=== PATIENT | female | born 1970 | race Caucasian/White ===

== ENCOUNTER 2018-06-11 15:26 | Emergency (ER) | payer MEDICAID ==
[2018-06-11 15:51] VITALS: BP 125/86
--- NOTE | 2018-06-11 16:02 | UC ---
Respiratory Complaint HPI - HPI Summary HPI Summary: This pt is a 47 y/o female, with hx of asthma, presenting to [facility] c/o coughing, asthma, and allergies. She states that when she has allergies her asthma is aggravated. She states she has difficulty breathing and has a nonproductive cough. Pt notes that when she coughs a lot she has upper back pain and lightheadedness. Denies chest pain, fever, chills. She has been taking antihistamines for her allergies. She has also been using her nebulizer and albuterol at home for asthma. She states that she has had this episode in the past a few times and her PCP usually administers a shot to open up her lungs. PMHx herniated disk lower back, bulging disk in neck. Pt usually takes Naproxen for her back pain but stopped taking it 2 days ago. Today she also c/o back pain radiating to her legs. - History of Current Complaint Chief Complaint: UCRespiratory Stated Complaint: ASTHMA Time Seen by Provider: 06/11/18 15:55 Hx Obtained From: Patient Hx Last Menstrual Period: 06/01/18 Onset/Duration: Lasting Hours, Still Present Severity Currently: Moderate Pain Intensity: 8 Pain Scale Used: 0-10 Numeric Character: Cough: Nonproductive Aggravating Factors: Nothing Alleviating Factors: Nothing Associated Signs And Symptoms: Negative: Fever, Chills, Pleuritic Chest Pain, Hemoptysis, Calf Pain, Calf Swelling, Edema - Allergies/Home Medications Allergies/Adverse Reactions: Allergies Allergy/AdvReac Type Severity Reaction Status Date / Time No Known Allergies Allergy Verified 06/11/18 15:51 Home Medications: Home Medications Loratadine/Pseudoephedrine [Loratadine-D 12Hr] 1 tab PO DAILY WITH MEAL [History Confirmed 06/11/18] Naproxen [Naproxen 500 mg tab] 500 mg PO DAILY WITH MEAL 06/11/18 [History Confirmed 06/11/18] PMH/Surg Hx/FS Hx/Imm Hx - Additional Past Medical History Additional PMH: PMHx: herniated disk lower back , bulging disk in neck Other Endocrine History: DENIES: diabetes Other Cardiovascular History: DENIES: HTN Respiratory History: Asthma - Surgical History Surgical History: None Surgery Procedure, Year, and Place: c section x 3 - Family History Known Family History: Positive: Respiratory Disease - asthma - Social History Alcohol Use: None Substance Use Type: None Smoking Status (MU): Light Every Day Tobacco Smoker Type: Cigarettes Length of Time of Smoking/Using Tobacco: 18 Have You Smoked in the Last Year: Yes Household Exposure Type: Cigarettes Review of Systems Constitutional: Negative Skin: Negative Eyes: Negative ENT: Negative Respiratory: Shortness Of Breath, Cough Cardiovascular: Negative Gastrointestinal: Negative Genitourinary: Negative Motor: Negative Neurovascular: Negative Musculoskeletal: Other: - POS: back pain Neurological: Other - POS: lightheadedness Psychological: Negative All Other Systems Reviewed And Are Negative: Yes Physical Exam - Summary Physical Exam Summary: General: well-appearing, no pain distress Skin: warm, color reflects adequate perfusion, dry Head: normal Eyes: EOMI, JUAN DANIEL ENT: normal Neck: supple, nontender Respiratory: CTA, breath sounds present Cardiovascular: RRR Abdomen: soft, nontender Bowel: present Musculoskeletal: normal, strength/ROM intact Neurological: normal, sensory/motor intact, A&O x3 Psychological: affect/mood appropriate Triage Information Reviewed: Yes Vital Signs: Initial Vital Signs Temp 98.7 F 06/11/18 15:45 Pulse 98 06/11/18 15:45 Resp 20 06/11/18 15:45 BP 125/86 06/11/18 15:45 Pulse Ox 100 06/11/18 15:45 Vital Signs Reviewed: Yes Diagnostic Evaluation - Laboratory O2 Sat by Pulse Oximetry: 100 Respiratory Course/Dx - Course Course Of Treatment: Medications reviewed. - Differential Dx/Diagnosis Provider Diagnoses: ASTHMA Discharge - Sign-Out/Discharge Documenting (check all that apply): Patient Departure - Discharge All imaging exams completed and their final reports reviewed: No Studies - Discharge Plan Condition: Stable Disposition: HOME Prescriptions: predniSONE TAB* [Deltasone 20 MG TAB*] 40 mg PO DAILY #8 tab Patient Education Materials: Asthma (ED) Referrals: [facility]IAN REFERRAL [Outside] Additional Instructions: FOLLOW UP WITH YOUR PRIMARY CARE DOCTOR. FOLLOW UP WITH NEUROSURGERY, DR DEJESUS, , FOR YOUR BACK PAIN. GET RECHECKED FOR ANY WORSENING OF YOUR CONDITION OR QUESTIONS OR CONCERNS. - Billing Disposition and Condition Condition: STABLE Disposition: Home - Attestation Statements Document Initiated by Scribe: Yes Documenting Scribe: Arianna Castellano Provider For Whom Scribe is Documenting (Include Credential): Vikas Cade MD Scribe Attestation: I, Arianna Castellano, scribed for Vikas Cade MD on 06/11/18 at 1752. Scribe Documentation Reviewed: Yes Provider Attestation: The documentation as recorded by the scribe, Arianna Castellano accurately reflects the service I personally performed and the decisions made by me, Vikas Cade MD
[2018-06-11] MEDS ORDERED: methylPREDNISolone 125 MG* 2 ML VIAL IM ONE (16:07)
== END 2018-06-11 16:31 | disposition home or self-care (01) ==
LOC: UCEAST 15:26
DX: J45.909 Unspecified asthma, uncomplicated (principal); M54.9 Dorsalgia, unspecified; F17.210 Nicotine dependence, cigarettes, uncomplicated
CPT/HCPCS: 96372; 99202; G0463; J2930

== ENCOUNTER 2018-07-02 08:29 | Emergency (ER) | payer OTHER ==
[2018-07-02 09:04] VITALS: BP 136/94
--- NOTE | 2018-07-02 09:25 | UC ---
Shortness of Breath HPI - HPI Summary HPI Summary: 48-year-old woman comes in with a chief complaint of dry cough and shortness of breath. This been going on for several weeks. It started when she moved in with her sister and is a dog in the house. She's had prior allergens to animals. She does have asthma and she is a smoker. She gets some intermittent splinting chest pain with the coughing. She has no chest pain now. She's not nauseous or sweaty. She does have some sputum production. She's been using her DuoNeb with minimal improvement. She was on steroids 2 weeks ago and that did help. At this time she is planning on getting a new apartment which is scheduled for July 16, 2018. The no apartment will not have an animal. No calf pain or swelling in the calves. She has chronic neck and low back pain and sciatica. This is worse with cough. She has been on naproxen the past she does not feel that helped. She had an MRI recently with her primary care doctor who is in [facility] and the patient starts PT tomorrow for the chronic back and neck pain and sciatica. There is no weakness numbness or difficulty controlling urine or bowel. - History of Current Complaint Chief Complaint: UCAsthma Stated Complaint: CONGESTED Time Seen by Provider: 07/02/18 09:07 Hx Last Menstrual Period: 06/23/18 - Allergy/Home Medications Allergies/Adverse Reactions: Allergies Allergy/AdvReac Type Severity Reaction Status Date / Time No Known Allergies Allergy Verified 06/11/18 15:51 Home Medications: Home Medications Albuterol HFA INHALER* [Ventolin HFA Inhaler*] 1 puff INH Q4H PRN 07/02/18 [ History Confirmed 07/02/18] Albuterol/Ipratropium NEB.PARTH* [Duoneb (Albuterol 2.5 MG/Ipratropium 0.5 MG)] 1 neb INH Q4H PRN 07/02/18 [History Confirmed 07/02/18] PMH/Surg Hx/FS Hx/Imm Hx - Additional Past Medical History Additional PMH: Chronic neck and back pain and chronic right sciatica Respiratory History: Asthma - Surgical History Surgical History: Yes Surgery Procedure, Year, and Place: c section x 3 - Family History Known Family History: Positive: Respiratory Disease - asthma - Social History Alcohol Use: None Substance Use Type: None Smoking Status (MU): Light Every Day Tobacco Smoker Type: Cigarettes Amount Used/How Often: 1 cig/ day Length of Time of Smoking/Using Tobacco: 18 Have You Smoked in the Last Year: Yes Household Exposure Type: Cigarettes Review of Systems Constitutional: Negative Skin: Negative Eyes: Negative ENT: Negative Respiratory: Shortness Of Breath, Cough Cardiovascular: Chest Pain - See history present illness Gastrointestinal: Negative Genitourinary: Negative Motor: Negative Neurovascular: Negative Musculoskeletal: Other: - Chronic neck and back pain and right sciatica Neurological: Negative Psychological: Negative Is Patient Immunocompromised?: No All Other Systems Reviewed And Are Negative: Yes Physical Exam Triage Information Reviewed: Yes Appearance: Well-Appearing, No Pain Distress, Well-Nourished, Other: - Dry cough Vital Signs: Initial Vital Signs Temp 98 F 07/02/18 08:57 Pulse 103 07/02/18 08:57 Resp 20 07/02/18 08:57 BP 136/94 07/02/18 08:57 Pulse Ox 99 07/02/18 08:57 Vital Signs Reviewed: Yes Eye Exam: Normal Eyes: Positive: Conjunctiva Clear ENT Exam: Normal ENT: Positive: Normal ENT inspection, Pharynx normal, Pharyngeal erythema. Negative: Hoarse voice Neck exam: Normal Neck: Positive: Supple, Nontender Respiratory: Positive: Chest non-tender, Normal breath sounds, No respiratory distress, No accessory muscle use Cardiovascular: Positive: RRR Musculoskeletal Exam: Normal Musculoskeletal: Positive: Strength Intact, ROM Intact, No Edema, Other: - Calves nontender to palpation. Patient is tender in the right sciatic distribution. Neurological Exam: Normal Neurological: Positive: Alert Psychological Exam: Normal Psychological: Positive: Normal Response To Family Skin Exam: Normal Shortness of Breath Dx - Course Course Of Treatment: Order Information: CHEST PA LAT 2 VWS. Accession Number: [id number]. CPT: 18915. INDICATION: Cough splinting chest pain. COMPARISON: There are no relevant prior studies available for comparison. TECHNIQUE: Dual- energy PA and lateral views of the chest were obtained. FINDINGS: The heart is within normal limits in size. Mediastinal contours appear normal. The left hilum appears prominent. The lungs are clear. No pleural effusion is present. IMPRESSION: PROMINENCE OF THE LEFT HILUM POSSIBLY REPRESENTING HILAR ADENOPATHY. RECOMMEND A FOLLOW-UP CT OF THE CHEST WITH CONTRAST FOR FURTHER EVALUATION. . < Electronically signed by Gordy Mejia MD in OV> 07/02/18 1779. Chest x-ray results discussed with the patient and family. The plan is for the patient to get a primary care doctor and then get the CT chest with IV contrast performed. Today we will treat with azithromycin and prednisone. The naproxen is for the sciatica. The patient noted if she did not improve or if she got worse she should go to the emergency department and show them the report of the recommendation for this chest CT with IV contrast. - Differential Dx/Diagnosis Provider Diagnoses: BRONCHITIS. ASTHMA. LEFT HILAR MASS Discharge - Sign-Out/Discharge Documenting (check all that apply): Patient Departure All imaging exams completed and their final reports reviewed: Yes - Discharge Plan Condition: Stable Disposition: HOME Prescriptions: Azithromyxin JUDITH (NF) [Z-Judith (Zithromax) 250 mg tabs #6] 2 tab PO .TODAY, THEN 1 DAILY #6 tab Naproxen [Naproxen 500 mg tab] 500 mg PO BID #30 tablet. predniSONE TAB* [Deltasone 20 MG TAB*] 40 mg PO DAILY #10 tab Patient Education Materials: Asthma (ED), Sciatica (ED), Acute Bronchitis (ED) Referrals: [facility] REFERR[facility] [Outside] Additional Instructions: FOLLOW UP WITH YOUR DOCTOR. YOUR CHEST X-RAY SHOWED SOME LEFT UPPER CHEST ABNORMALITY AND A CT CHEST WITH IV CONTRAST IS RECOMMENDED. GET THIS DONE WITH YOUR PRIMARY CARE DOCTOR. GO TO THE EMERGENCY DEPARTMENT FOR ANY WORSENING OF YOUR CONDITION OR QUESTIONS OR CONCERNS. - Billing Disposition and Condition Condition: STABLE Disposition: Home
--- NOTE | 2018-07-02 09:49 | RAD ---
INDICATION: Cough splinting chest pain. COMPARISON: There are no relevant prior studies available for comparison. TECHNIQUE: Dual-energy PA and lateral views of the chest were obtained. FINDINGS: The heart is within normal limits in size. Mediastinal contours appear normal. The left hilum appears prominent. The lungs are clear. No pleural effusion is present. IMPRESSION: PROMINENCE OF THE LEFT HILUM POSSIBLY REPRESENTING HILAR ADENOPATHY. RECOMMEND A FOLLOW-UP CT OF THE CHEST WITH CONTRAST FOR FURTHER EVALUATION.
== END 2018-07-02 10:20 | disposition home or self-care (01) ==
LOC: UCEAST 08:29
DX: J45.909 Unspecified asthma, uncomplicated (principal); R91.8 Other nonspecific abnormal finding of lung field; F17.210 Nicotine dependence, cigarettes, uncomplicated
CPT/HCPCS: 71046; 99212; G0463

== ENCOUNTER 2018-10-16 14:15 | Emergency (ER) | payer OTHER ==
[2018-10-16 14:28] VITALS: BP 142/94
--- OUTSIDE RECORDS SUMMARY | 2018-10-16 14:36 | XMS REPORT | Continuity of Care Document ---
:1970 External Reference #:[id number] Author Name Ronal Resendiz MD Address [address] [place] [address] Care Team Providers Name Role Phone Anjum Teague, Care Team Information Rehab Therapist Unavailable Anjum Teague, Primary Care Physician Unavailable Payers Type Date Identification Numbers Payment Provider Subscriber Policy Number: [id number] [facility] Ilda Lorenz PayID: [id number] [address] [place] [address] Advance Directives Description No Information Available Problems Date Description Provider Status Onset: 10/03/2018 Uncomplicated severe persistent Ronla Resendiz MD Active asthma Onset: 10/03/2018 Allergic rhinitis Ronal Resendiz MD Active Onset: 10/03/2018 Allergic rhinitis due to pollen Ronal Resendiz MD Active Family History Date Family Member(s) Problem(s) Comments General Asthma Social History Type Date Description Comments Sex Unknown Tobacco Use Start: Unknown Home is not smoke-free Pets None Tobacco Use Start: Unknown Light tobacco smoker (10 or fewer cigarettes/day) Tobacco Use Start: Unknown Second Hand Smoke Exposure In The Home Smoking Status Reviewed: 10/10/18 Second Hand Smoke Exposure In The Home Allergies, Adverse Reactions, Alerts Description No Known Drug Allergies Medications Medication Date Status Form Strength Qnty SIG Indications Ordering Provider Breo Ellipta 10/03 Active Aerosol 200-25mcg 3unit inhale J30.1 Christopher /2019 /Inh s one puff Shamar Resendiz MD once a day Proair HFA 10/03 Active Aerosol 108(90Bas 25.5g 2 puffs J30.1 e) m every 4 Shamar Resendiz MD mcg/Act as needed Flonase Allergy 10/03 Active Suspension 50mcg/Act 9.900 2 puffs J30.1 ml each Shamar Resendiz MD nostril every day Zyrtec Allergy 10/03 Active Tablets 10mg 30tab one J30.1 Dispers s tablet Shamar Resendiz MD by mouth every day as needed Gabapentin Active Capsules 300mg Zahida, Anjum /0000 Fermín, Cyclobenzaprine Active Tablets 10mg Zahida, Anjum HCL /0000 Fermín, Naproxen DR Active Tablets DR 500mg Unknown /0000 Albuterol Active Nebulizer (2.5mg/3M Unknown Sulfate /0000 L) 0.083% Ipratropium Active Solution 0.5-2.5(3 Unknown [place]/Albutero /0000 )mg/3ML l Sulfate Ventolin HFA Hx Aerosol 108(90Bas Zahida, Anjum /0000 e) Fermín, - mcg/Act 10/03 Advair Diskus Hx Aerosol 100-50mcg Crepet, /0000 /Dose MD Bailey - 10/03 Immunizations Description No Information Available Vital Signs Date Vital Result Comment 10/10/2018 2:40pm BP Systolic 120 mmHg BP Diastolic 78 mmHg Height 63 inches 5'3" Weight 213.00 lb BMI (Body Mass Index) 37.7 kg/m2 Heart Rate 93 /min Respiratory Rate 18 /min O2 % BldC Oximetry 98 % 10/03/2018 10:58am BP Systolic 130 mmHg BP Diastolic 94 mmHg Height 63 inches 5'3" Weight 200.00 lb BMI (Body Mass Index) 35.4 kg/m2 Heart Rate 95 /min Respiratory Rate 20 /min O2 % BldC Oximetry 99 % Results Description No Information Available Procedures Date Code Description Status 10/10/2018 63795 Nitric Oxide Gas Determination Completed 10/03/2018 46618 Nitric Oxide Gas Determination Completed 10/03/2018 13942 Allergy Tests Percutaneous W/ Allergenic Extracts Completed 10/03/2018 94702 Demonstration/Eval,Of Patient Utilization Of Completed Aerosol,Nebulizer 10/03/2018 11132 Bronchodilation Responsiveness Spirometry Pre/Post Completed Bronchodil Adm Encounters Type Date Location Provider Dx Diagnosis Office Visit 10/10/2018 2:30p [place] [facility] Tucker J30.1 Allergic rhinitis due to pollen J30.89 Other allergic rhinitis J45.50 Severe persistent asthma, uncomplicated Office Visit 10/03/2018 11:00a [place] Ronal Resendiz J30.1 Allergic rhinitis MD due to pollen J30.89 Other allergic rhinitis J45.50 Severe persistent asthma, uncomplicated Plan of Treatment Future Appointment(s):10/22/2018 8:30 am - TE Serrano at [id number]/10/2018 - [facility] TuckerJ30.1 Allergic rhinitis due to awrxpbL22.89 Other allergic wspamzavR32.50 Severe persistent asthma, uncomplicatedComments: Patient's exhaled nitric oxide has decreased from 55 to 37 ppb over the past week. Patient to continue Breo for prophylaxis of her lungs and Proair for breakthrough chest symptoms. Patient to continueFlonase for prophylaxis of her nose and Zyrtec for breakthrough nasal symptoms. Patient to use nebulizer every 4 hours as needed. Patient to discontinue oral antihistamines for 48 hours prior to skin testing for food allergies.Greater than 50% of the 25- minute visit was spent in discussion of the testing results and treatment options.Follow up:6 months, PFT and NIOX prior
--- OUTSIDE RECORDS SUMMARY | 2018-10-16 14:37 | XMS REPORT | Continuity of Care Document ---
:1970 External Reference #:[id number] Author Name Danielle Cardona Care Team Providers Name Role Phone Anjum Teague, Care Team Information Supervisor Winter Unavailable Ajnum Teague, Primary Care Physician Unavailable Payers Type Date Identification Numbers Payment Provider Subscriber Policy Number: [id number] [facility] Ilda Lorenz PayID: [id number] [address] [place] [address] Advance Directives Description No Information Available Problems Date Description Provider Status Onset: 10/03/2018 Uncomplicated severe persistent Ronal Resendiz MD Active asthma Onset: 10/03/2018 Allergic [...] Exposure In The Home Smoking Status Reviewed: 10/03/18 Second Hand Smoke Exposure In The Home Allergies, Adverse Reactions, Alerts Description No Known Drug Allergies Medications Medication Date Status Form Strength Qnty SIG Indications Ordering Provider Breo Ellipta 10/03 Active Aerosol 200-25mcg 3unit inhale J30.1 /Inh s one puff Shamar Resendiz MD once a day Proair HFA 10/03 Active Aerosol 108(90Bas 25.5g 2 puffs J30.1 e) m every 4 Shamar Resendiz MD mcg/Act as needed Flonase Allergy 10/03 Active Suspension 50mcg/Act 9.900 2 puffs J30.1 ml each Sahmar Resendiz MD nostril every day Zyrtec Allergy [...] L) 0.083% Ipratropium Active Solution 0.5-2.5(3 Unknown [place]/Albutero /0000 )mg/3ML l Sulfate Ventolin HFA Hx [...] Information Available Procedures Date Code Description Status 10/03/2018 67178 Nitric Oxide Gas Determination Completed 10/03/2018 76205 Allergy Tests Percutaneous W/ Allergenic Extracts Completed 10/03/2018 48713 Demonstration/Eval,Of Patient Utilization Of Completed Aerosol,Nebulizer 10/03/2018 32895 Bronchodilation Responsiveness Spirometry Pre/Post Completed Bronchodil Adm Encounters Type Date Location Provider Dx Diagnosis Office Visit 10/03/2018 Oleg[facility] Ibanez Resendiz, J30.1 Allergic rhinitis 11:00a MD due to pollen J30.89 Other allergic rhinitis J45.50 Severe persistent asthma, uncomplicated Plan of Treatment 10/03/2018 - Ronal Resendiz MDJ30.1 Allergic rhinitis due to pollenNew Medication:Breo Ellipta 200-25 mcg/Inh - inhale one puff once a dayProair HFA 108(90 Base) mcg/Act - 2 puffs every 4 as neededFlonase Allergy Relief 50 mcg/ Act - 2 puffs each nostril every dayZyrtec Allergy 10 mg - one tablet by mouth every day as gbsjxwT05.89 Other allergic jozhznmiD86.50 Severe persistent asthma , uncomplicated
--- OUTSIDE RECORDS SUMMARY | 2018-10-16 14:37 | XMS REPORT | Continuity of Care Document ---
:1970 External Reference #:[id number] Author Name Nicole Fernandez Care Team Providers Name Role Phone Carmen Fuchs MD Primary Care Physician Unavailable Payers Type Date Identification Numbers Payment Provider Subscriber Policy Number: [id number] Gurjit Lorenz PayID: [id number] [address] [place] [address] Advance Directives Description No Information Available Problems Date Description Provider Status Onset: 08/19/2018 Mild intermittent asthma Anjum Teague NP Active Onset: 08/19/2018 Chronic back pain Anjum Teague NP Active Onset: 08/19/2018 Chronic neck pain Anjum Teague NP Active Family History Date Family Member(s) Problem(s) Comments General Lung Cancer Father No Current Problems Mother due to Lung Cancer () Siblings 1 Social History Type Date Description Comments Sex Unknown Marital Status Single Lives With Children Occupation Disabled Back Tobacco Use Start: Unknown Light tobacco smoker (10 or fewer cigarettes/day) Tobacco Use Start: Unknown Light tobacco smoker (10 or fewer cigarettes/day) Smoking Status Reviewed: 10/10/18 Light tobacco smoker (10 or fewer cigarettes/day) ETOH Use Denies alcohol use Recreational Drug Use Denies Drug Use Tobacco Use Start: Unknown Light tobacco smoker (10 or fewer cigarettes/day) Exercise Type/Frequency Exercises rarely Allergies, Adverse Reactions, Alerts Date Description Reaction Status Severity Comments 07/03/2018 Shellfish-derived Products Active Medications Medication Date Status Form Strength Qnty SIG Indications Ordering Provider Bupropion HCL ER 10/08/ Active Tablets ER 150mg 30tab 1 by mouth F32.89 Anjum (XL) 2019 24HR s every day YOLANDA Teague Back Support/Dual 10/08/ Active Misc 1unit Wear M51.16 Anjum Adjustment/Large- 2019 s during the YOLANDA Teague Extra Large day Ventolin HFA 09/21/ Active Aerosol 108(90Bas 8gm 2 puffs by Anjum 2017 e) mouth four YOLANDA Teague mcg/Act times a day as needed Gabapentin 08/13/ Active Capsules 300mg 60cap take 1 M51.16 Anjum 2018 s capsule by YOLANDA Teague mouth qhs. If tolerated can increase to one cap twice daily after three days. Cyclobenzaprine 08/13/ Active Tablets 10mg 60tab 1/2-1 M51.16 Anjum HCL 2018 s tablet by YOLANDA Teague mouth three times a day as needed spasm Albuterol Sulfate 07/03/ Active Nebulizer (5mg/ML) 30uni 1 inahled J45.41 Irma 2018 0.5% ts three Senner, times a DO day Naproxen 00/ Active Tablets 500mg 1 by mouth Unknown 0000 twice a day as needed pain Albuterol Sulfate / Active Nebulizer (2.5mg/3M 1 vial via Unknown 0000 L) 0.083% nebulizer 4 times daily as needed Advair Diskus 00/ Active Aerosol 100-50mcg Crepet, 0000 /Dose MD Bailey Clotrimazole 08/19/ Hx Gaurav 10mg 70uni dissolve Anjum 2018 - ts into mouth YOLANDA Teague 08/31/ slowly 5 2018 times a day x 2 weeks Lidocaine 08/16/ Hx Cream 4% 15gm apply to B02.9 Anjum 2018 - affected YOLANDA Teague 10/10/ areas 3 or 2018 4 times daily Baclofen 11// Hx Tablets 10mg 30tab take 1/2 M50.10 Anjum 2018 - s tab every YOLANDA Teague 08/13/ 8 hours as 2018 needed for muscle spasm Valacyclovir HCL 08/13/ Hx Tablets 1gm 21tab 1 tablet B02.9 Anjum 2018 - s three YOLANDA Teague 08/20/ times 2018 daily for 7 days Lidocaine Viscous // Hx Solution 2% 100ml gargle J02.9 Anjum 2018 - 15ml every YOLANDA Teague 08/20/ 3-4 hours 2018 as needed Lidocaine 11// Hx Ointment 5% 50uni apply to B02.9 Anjum 2018 - ts painful Zahida, PROJECT LEAD 2017 three times a day as needed Nicotine 07/03/ Hx Patches 7mg/24HR 14uni 1 patch Z72.0 Irma Transdermal 2017 - 24HR ts topical Senner, System Step 3 10/10/ every day DO 2018 Ipratropium 07/03/ Hx Solution 0.5-2.5(3 90ml 1 cap J45.41 Irma [place]/Albuterol 2018 - )mg/3ML inhaled Senner, Sulfate 10/10/ three DO 2019 times a day Azithromycin / Hx Tablets 250mg 2 tabs by Unknown 0000 - mouth on 1; 1 2017 tab by mouth every day on days 2-5 Prednisone / Hx TBPK 10mg (21) 40 mg Unknown 0000 - daily for 2017 Arnuity Ellipta / Hx Aerosol 100mcg/Ac Unknown 0000 - t 2018 Immunizations Description No Information Available Vital Signs Date Vital Result Comment 10/08/2018 11:39am Height 62 inches 5'2" Weight 215.00 lb with shoes Heart Rate 108 /min BP Systolic 122 mmHg BP Diastolic 84 mmHg O2 % BldC Oximetry 96 % BMI (Body Mass Index) 39.3 kg/m2 09/03/2018 11:05am Height 62 inches 5'2" Weight 209.00 lb BP Systolic Sitting 120 mmHg BP Diastolic Sitting 80 mmHg Pain Level 8 BMI (Body Mass Index) 38.2 kg/m2 08/13/2018 9:30am Height 62 inches 5'2" Weight 209.00 lb with shoes Heart Rate 100 /min BP Systolic 118 mmHg BP Diastolic 72 mmHg Body Temperature 98.9 F O2 % BldC Oximetry 98 % BMI (Body Mass Index) 38.2 kg/m2 07/03/2018 2:27pm Height 62 inches 5'2" Weight 203.00 lb Heart Rate 72 /min BP Systolic 132 mmHg BP Diastolic 80 mmHg BP Systolic Sitting 134 mmHg BP Diastolic Sitting 78 mmHg Respiratory Rate 18 /min Body Temperature 99.7 F Pain Level 8 Rle O2 % BldC Oximetry 98 % BMI (Body Mass Index) 37.1 kg/m2 Results Test Date Facility Test Result H/L Range Note Laboratory test [facility] Culture Throat SEE RESULT 1 finding [address] [place] [address] [phone] Laboratory test [employer] In House Rapid Group A negative finding 8 Strep Laboratory test [facility] Hemoglobin A1c 5.6 % N 4.0-5.6 2 finding [address] (Glyco HGB) [place] [address] [phone] Lipid Profile [facility] Triglycerides 143 mg/dL 3 (Trig/Chol/HDL) [address] [place] [address] [phone] Cholesterol 150 mg/dL 4 HDL Cholesterol 63.4 mg/dL 5 LDL Cholesterol 58 mg/dL 6 Laboratory 07/04/2018 [facility] Hepatitis C Nonreactive Nonreactive test finding [address] [place] [address] [phone] TSH (Thyroid Stim Horm) 3.68 mcIU/mL N 0.34-5.60 1 SEE RESULT BELOW Name: KAVITACHETAN : [address]: Anjmu Teague NP Acct: [id number] Unit: [id number] AGE: 48 Location: [facility] Re08/13/18 SEX: F Status: REG REF SPEC: [id number] BRYCE: 08/13/18-[address]: Anjum Teague NP REQ: [id number] RECD: 08/13/18 STATUS: COMP _ SOURCE: THROAT SPDESC: ORDERED: Throat Culture COMMENTS: [id number] Procedure Result Reported Site Throat Culture Final 08/15/18900 ML Organism 1 NORMAL BRYCE Quantity 2+ Organism 2 YEAST Quantity 1+ Throat cultures are clinically indicated to detect the presence of group A strep, arcanobacterium and yeast. In certain cases, predominating organisms will be reported. * ML - Main Lab . END OF REPORT DEPARTMENT OF PATHOLOGY, [address] [place] [address] Harpal Sultana M.D. Director [facility] # [id number] 2 Therapeutic target for the treatment of diabetes mellitus patients is <7% HBA1C, and in selective patients <6.0%. Please refer to [place] Diabetes Association diabetic care guidelines for further information. 3 Desirable: <150 Borderline High: 150-199 High: 200-499 Very High: >500 4 Desirable: <200 Borderline High: 200-239 High: >239 5 Low: <40 Desirable: 40-60 High: >60 6 Desirable: <100 Near Optimal: 100-129 Borderline High: 130-159 High: 160-189 Very High: >189 Procedures Date Code Description Status 07/05/2018 [id number] Mammogram Completed Encounters Type Date Location Provider Dx Diagnosis Office Visit 09/03/2018 Neurosurgery Taylor M51.16 Intervertebral disc 10:30a [facility] MD Katherine disorders w radiculopathy, lumbar region M47.12 Other spondylosis with myelopathy, cervical region M50.122 Cervical disc disorder at C5-C6 level with radiculopathy Office Visit 08/13/2018 9:20a [facility] Internal Anjum Teague M51.16 Intervertebral disc Medicine - [employer] disorders w [place] radiculopathy, lumbar region M50.10 Cervical disc disorder w radiculopathy, unsp cervical region F17.210 Nicotine dependence, cigarettes, uncomplicated J02.9 Acute pharyngitis, unspecified J45.20 Mild intermittent asthma, uncomplicated B02.9 Zoster without complications M54.5 Low back pain M54.2 Cervicalgia Office Visit 07/03/2018 1:30p [facility] Irma Mosqueda, Z72.0 Tobacco use [facility] DO J45.41 Moderate persistent asthma with (acute) exacerbation Z12.39 Encounter for oth screening for malignant neoplasm of breast E66.3 Overweight M79.604 Pain in right leg M51.16 Intervertebral disc disorders w radiculopathy, lumbar region Plan of Treatment Future Appointment(s):10/11/2018 9:20 am - Deena Whitaker MD at [facility] Wkgxzbxcmay59/18/2019 10:30 am - Taylor Murphy MD at [facility]surgery [facility]11/13/2018 9:20 am - Anujm Teague NP at [facility] Internal Medicine [facility]
--- OUTSIDE RECORDS SUMMARY | 2018-10-16 14:37 | XMS REPORT | Continuity of Care Document ---
:1970 External Reference #:[id number] Author Name Merlin Becker Care Team Providers Name Role Phone Carmen Fuchs MD Primary Care Physician Unavailable Payers Type Date Identification Numbers Payment Provider Subscriber Policy Number: [id number] Gurjit Walls PayID: [id number] [address] [place] [address] Advance Directives Description No Information Available Problems [...] Single Lives With Children Occupation Disabled Back ETOH Use Denies alcohol use Recreational Drug Use Denies Drug Use Tobacco Use Start: Unknown Light tobacco smoker (10 or fewer cigarettes/day) Smoking Status Reviewed: 10/08/18 Light tobacco smoker (10 or fewer cigarettes/day) [...] Teague mcg/Act times a day as needed Lidocaine 08/16/ Active Cream 4% 15gm apply to B02.9 Anjum 2018 affected YOLANDA Teague areas 3 or 4 times daily Gabapentin 08/13/ Active Capsules 300mg 60cap take 1 M51.16 Anjum 2018 s capsule by YOLANDA Teague mouth qhs. If tolerated can increase to one cap twice daily after three days. Cyclobenzaprine 08/13/ Active Tablets 10mg 60tab 1/2-1 M51.16 Anjum HCL 2018 s tablet by YOLANDA Teague mouth three times a day as needed spasm Nicotine 07/03/ Active Patches 7mg/24HR 14uni 1 patch Z72.0 Irma Transdermal 2018 24HR ts topical Senner, System Step 3 every day DO Ipratropium 07/03/ Active Solution 0.5-2.5(3 90ml 1 cap J45.41 Irma [place]/Albuterol 2017 )mg/3ML inhaled Senner, Sulfate three DO times a day Albuterol Sulfate 07/03/ Active Nebulizer (5mg/ML) 30uni 1 inahled J45.41 Irma 2018 0.5% ts three Senner, times a DO day Naproxen / Active Tablets 500mg 1 by mouth Unknown 0000 twice a day as needed pain Albuterol Sulfate / Active Nebulizer (2.5mg/3M 1 vial via Unknown 0000 L) 0.083% nebulizer 4 times daily as needed Advair Diskus / Active Aerosol 100-50mcg Crepet, 0000 /Dose MD Bailey Arnuity Ellipta / Active Aerosol 100mcg/Ac Unknown 0000 t Clotrimazole 08/19/ Hx Gaurav 10mg 70uni dissolve Anjum 2017 - ts into mouth YOLANDA Teague 08/31/ slowly 5 2018 times a day x 2 weeks Baclofen 08/13/ Hx Tablets 10mg 30tab take 1/2 M50.10 Anjum 2018 - s tab every YOLANDA Teague 11// 8 hours as 2018 needed for muscle spasm Valacyclovir HCL 08/13/ Hx Tablets 1gm 21tab 1 tablet B02.9 Anjum 2018 - s three YOLANDA Teague 08/20/ times 2017 daily for 7 days Lidocaine Viscous 08/13/ Hx Solution 2% 100ml gargle J02.9 Anjum 2018 - 15ml every Zahida, CASHIER CREDIT 3-4 hours 2018 as needed Lidocaine 08/13/ Hx Ointment 5% 50uni apply to B02.9 Anjum 2018 - ts painful Zahida, CASHIER CREDIT 2018 three times a day as needed Azithromycin 00// Hx Tablets 250mg 2 tabs by Unknown 0000 - mouth on day 1; 2017 tab by mouth every day on days 2-5 Prednisone 00/00/ Hx TBPK 10mg (21) 40 mg Unknown 0000 - daily for days 2018 Immunizations Description No Information Available Vital [...] Test Result H/L Range Note Laboratory test [facility] Culture Throat SEE RESULT 1 finding [address] [place] [address] [phone] Laboratory test [employer] In House Rapid Group A negative finding [address] [facility] Hemoglobin A1c 5.6 % N 4.0-5.6 2 finding [address] (Glyco HGB) [place] [address] [phone] [facility] Triglycerides 143 mg/dL 3 (Trig/Chol/HDL) [address] [place] [address] [phone] Cholesterol 150 mg/dL 4 HDL Cholesterol 63.4 mg/dL 5 LDL Cholesterol 58 mg/dL 6 Laboratory 07/04/2018 [facility] Hepatitis C Nonreactive Nonreactive test finding [address] [place] [address] [phone] TSH (Thyroid Stim Horm) 3.68 mcIU/mL N 0.34-5.60 1 SEE RESULT BELOW Name: CHETAN WALLS : [address]: Anjum Teague NP Acct: [id number] Unit: [id number] AGE: 48 Location: [facility] Re08/13/18 SEX: F Status: REG REF SPEC: [id number] BRYCE: 08/13/18-[address]: Anjum Teague [employer] CREDIT REQ: [id number] RECD: 08/13/18 STATUS: COMP _ SOURCE: THROAT SPDESC: ORDERED: Throat Culture COMMENTS: [id number] Procedure Result Reported Site Throat Culture Final 08/15/18- 900 ML Organism 1 NORMAL BRYCE Quantity 2+ Organism 2 YEAST Quantity 1+ Throat cultures are clinically indicated to detect the presence of group A strep, arcanobacterium and yeast. In certain cases, predominating organisms will be reported. * ML - Main Lab . END OF REPORT DEPARTMENT OF PATHOLOGY, [address] [place] [address] Harpal Sultana M.D. Director [facility] # [id number] 2 Therapeutic target for the treatment of diabetes mellitus patients is <7% HBA1C, and in selective patients <6.0%. Please refer to [place] Diabetes Association diabetic care guidelines for further information. 3 Desirable: <150 Borderline High: 150-199 High: 200-499 Very High: >500 4 Desirable: <200 Borderline High: 200-239 High: >239 5 Low: <40 Desirable: 40-60 High: >60 6 Desirable: <100 Near Optimal: 100-129 Borderline High: 130-159 High: 160-189 Very High: >189 Procedures Date Code Description Status 07/05/2018 [id number] Mammogram Completed Encounters Type Date Location Provider Dx Diagnosis Office Visit 09/03/2018 Neurosurgery Nunosilethel M51.16 Intervertebral disc 10:30a [facility] MD Katherine disorders w radiculopathy, lumbar region M47.12 Other spondylosis with myelopathy, cervical region M50.122 Cervical disc disorder at C5-C6 level with radiculopathy Office Visit 08/13/2018 9:20a [facility] Internal Anjum Teague M51.16 Intervertebral disc Medicine - CASH[employer] CREDIT disorders w [place] radiculopathy, lumbar region M50.10 Cervical disc disorder w radiculopathy, unsp cervical region F17.210 Nicotine dependence, cigarettes, uncomplicated J02.9 Acute pharyngitis, unspecified J45.20 Mild intermittent asthma, uncomplicated B02.9 Zoster without complications M54.5 Low back pain M54.2 Cervicalgia Office Visit 07/03/2018 1:30p [facility] Irma Mosqueda, Z72.0 Tobacco use [facility] DO J45.41 Moderate persistent asthma with (acute) exacerbation Z12.39 Encounter for oth screening for malignant neoplasm of breast E66.3 Overweight M79.604 Pain in right leg M51.16 Intervertebral disc disorders w radiculopathy, lumbar region Plan of Treatment Future Appointment(s):10/19/2018 10:30 am - Taylor Murphy MD at [facility]10/10/2018 9:00 am - Odessa Robledo N.P. at [facility]11/13/2018 9:20 am - Anjum Teague NP at [facility] Internal Medicine [facility]10/08/2018 - Anjum Teague NPM51.16 Intervertebral disc disorders with radiculopathy, lumbar regNew Medication:Back Support/Dual Adjustment/Large-Extra Large - Wear during the dayM50.10 Cervical disc disorder with radiculopathy, unspecified cerviComments:You can take the Naproxen during the day.Continue to use the cyclobenzaprine as needed at night.Continue with the gabapentin.F17.210 Nicotine dependence, cigarettes, gobaycvlwipgsK16.89 Other specified depressive episodesNew Medication:Bupropion HCL ER (XL) 150 mg - 1 by mouth every dayComments:Start taking the Wellbutrin, one pill once daily. This will take up to 4-6 weeks to start working. This may also help you stop smoking and with weight reduction.Follow up:4 weeks
--- OUTSIDE RECORDS SUMMARY | 2018-10-16 14:37 | XMS REPORT | Continuity of Care Document ---
:1970 External Reference #:[id number] Author Name Danielle Cardona Care Team Providers Name Role Phone Anjum Teague, Care Team Information Self Pay Collector Unavailable Anjum Teague, Primary Care Physician Unavailable Payers Type Date Identification Numbers Payment Provider Subscriber Policy Number: [id number] [facility] Ilda Lorenz PayID: [id number] [address] [place] [address] Advance Directives Description No Information Available Problems Description No Information Family History Description No Information Available Social History Type Date Description Comments Sex Unknown Allergies, Adverse Reactions, Alerts Description No Known Drug Allergies Medications Medication Date Status Form Strength Qnty SIG Indications Ordering Provider Ventolin HFA Active Aerosol 108(90Base) Zahida, 000 mcg/Act Anjum Kovacs, Gabapentin Active Capsules 300mg Zahida, 000 Anjum Kovacs Cyclobenzaprine Active Tablets 10mg Zahida, HCL [address] Active Tablets DR 500mg Unknown 000 Advair Diskus Active Aerosol 100-50mcg/D Crepet, 000 chidi Avalos MD Albuterol Sulfate Active Nebulizer (2.5mg/3ML) Unknown 000 0.083% Ipratropium Active Solution 0.5-2.5(3)m Unknown [place]/Albuterol 000 g/3ML Sulfate Immunizations Description No Information Available Vital Signs Date Vital Result Comment 10/03/2018 10:58am BP Systolic 130 mmHg BP Diastolic 94 mmHg Height 63 inches 5'3" Weight 200.00 lb BMI (Body Mass Index) 35.4 kg/m2 Heart Rate 95 /min Respiratory Rate 20 /min O2 % BldC Oximetry 99 % Results Description No Information Available Procedures Description No Information Available Encounters Description No Information Available Plan of Treatment No Information Available
--- OUTSIDE RECORDS SUMMARY | 2018-10-16 14:37 | XMS REPORT | Continuity of Care Document ---
:1970 External Reference #:[id number] Author Name Ronal Resendiz MD Address [address] [place] [address] Care Team Providers Name Role Phone Anjum Teague, Care Team Information Chuck Wagon Driver Unavailable Anjum Teague, Primary Care Physician Unavailable Payers Type Date Identification Numbers Payment Provider Subscriber Policy Number: [id number] [facility] Ilda Lorenz PayID: [id number] [address] [place] [address] Advance Directives Description No Information Available Problems [...] L) 0.083% Ipratropium Active Solution 0.5-2.5(3 Unknown [place]/Albutero /0000 )mg/3ML l Sulfate Ventolin HFA Hx [...] O2 % BldC Oximetry 99 % Results Test Date Facility Test Result H/L Range Note .CBC Auto Diff 10/03/2018 [facility]Other <pending> [address] [place] [address] [phone] Laboratory test 10/03/2018 [facility] Ige Total <pending> finding [address] [place] [address] [phone] Order 10/03/2018 [facility] Inhaler <pending> Training-Patient Demonstrates Competency Nitric Oxide <pending> PFT Supplies <pending> PFT With Bronchodilator <pending> Skin Test Seasonal and Environmental <pending> Procedures Date Code Description Status 10/03/2018 13778 Nitric Oxide Gas Determination Completed 10/03/2018 89413 Allergy Tests Percutaneous W/ Allergenic Extracts Completed 10/03/2018 02904 Demonstration/Eval,Of Patient Utilization Of Completed Aerosol,Nebulizer 10/03/2018 04319 Bronchodilation Responsiveness Spirometry Pre/Post Completed Bronchodil Adm Encounters Description No Information Available Plan of Treatment 10/03/2018 - Ronal Resendiz MDJ30.1 Allergic rhinitis due to pollenNew Medication:Breo Ellipta 200-25 mcg/Inh - inhale one puff once a dayProair HFA 108(90 Base) mcg/Act - 2 puffs every 4 as neededFlonase Allergy Relief 50 mcg/ Act - 2 puffs each nostril every dayZyrtec Allergy 10 mg - one tablet by mouth every day as gorljjZ38.89 Other allergic qikkhqnrD14.50 Severe persistent asthma , uncomplicated
== END 2018-10-16 16:10 | disposition left against medical advice (07) ==
LOC: ED 14:15
DX: R42 Dizziness and giddiness (principal); Z53.21 Procedure and treatment not carried out due to patient leaving prior to being seen by health care provider

== ENCOUNTER 2018-12-11 12:00 | Inpatient (IN) | payer OTHER ==
[2018-12-19] MEDS ORDERED: Buffered Lidocaine 1% SYRIN* 1 ML/SYRINGE INTRADERM ONE (12:32)
[2018-12-20] MEDS ORDERED: Lactated Ringers 1000 ML Bag* 1,000 ML IV SCH ×2 (06:00→16:00)
[2018-12-20] MEDS ORDERED: Famotidine IV* 10 MG/ML 2 ML (20 mg) IV ONE (06:00)
[2018-12-20] MEDS ORDERED: Dexamethasone IV* 4 MG/ML 1 ML (4 MG) IV SLOW PU ONE (06:00)
[2018-12-20] MEDS ORDERED: Levalbuterol 0.63MG/3ML NEB* UNIT OF USE INH ONE ×2 (06:00→10:01)
--- OUTSIDE RECORDS SUMMARY | 2018-12-20 09:34 | XMS REPORT | Continuity of Care Document ---
:1970 External Reference #:[id number] Author Name Mariola Lozano Care Team Providers Name Role Phone Carmen Fuchs MD Primary Care Physician Unavailable Payers Date Identification Numbers Payment Provider Subscriber Policy Number: [id number] Gurjit Walls PayID: [id number] [address] [place] [address] Advance Directives Description No Information Available Problems Date Description Provider Status Onset: 08/19/2018 Mild intermittent asthma Anjumjackelin Teague NP Active Onset: 08/19/2018 Chronic back pain Anjumjackelin Teague NP Active Onset: 08/19/2018 Chronic neck pain Anjum Teague NP Active Family History Date Family Member(s) Observation Comments General Lung Cancer Father No Current Problems Mother due to Lung Cancer () Siblings 1 Social History Type Date Description Comments Sex Unknown Marital Status Single Lives With Children Occupation Disabled Back Tobacco Use Start: Unknown Light tobacco smoker (10 or fewer cigarettes/day) Tobacco Use Start: Unknown Light tobacco smoker (10 or fewer cigarettes/day) Smoking Status Reviewed: 12/14/18 Light tobacco smoker (10 or fewer cigarettes/day) ETOH Use Denies alcohol use Recreational Drug Use Denies Drug Use Tobacco Use Start: Unknown Light tobacco smoker (10 or fewer cigarettes/day) Exercise Type/Frequency Exercises rarely Allergies, Adverse Reactions, Alerts Date Description Reaction Status Severity Comments 07/03/2018 Shellfish-derived Products Active Medications Medication Date Status Form Strength Qnty SIG Indications Ordering Provider Ferrous Sulfate 11/19 Active Tablets 325(65Fe) 30tab take one Anjum mg s tablet Zahida, STRIP MACHINE OPERATOR once daily Naproxen 10/23 Active Tablets 500mg 30tab 1 by mouth Anjum s twice a YOLANDA Teague day as needed pain Gabapentin 10/23 Active Capsules 100mg 120ca take 1 M51.16 Anjum ps capsule in YOLANDA Teague the morning and three at bedtime. Fluticasone 10/23 Active Suspension 50mcg/Act 16gm 2 sprays H81.10 Anjum Propionate each YOLANDA Teague nostril qd. Bupropion HCL ER 10/08 Active Tablets ER 150mg 30tab 1 by mouth F32.89 Anjum (XL) 24HR s every day YOLANDA Teague Back Support/Dual 10/08 Active Misc 1unit Wear M51.16 Anjum Adjustment/Large- /2018 s during the YOLANDA Teague Extra Large day Ventolin HFA 09/21 Active Aerosol 108(90Bas 8gm 2 puffs by Anjum e) mouth four YOLANDA Teague mcg/Act times a day as needed Cyclobenzaprine 08/13 Active Tablets 10mg 60tab 10/03-1 M51.16 Anjum HCL s tablet by YOLANDA Teague mouth three times a day as needed spasm Albuterol Sulfate 07/03 Active Nebulizer (5mg/ML) 30uni 1 inahled J45.41 Irma 0.5% ts three Senner, times a DO day Albuterol Sulfate Active Nebulizer (2.5mg/3M 1 vial via Unknown /0000 L) 0.083% nebulizer 4 times daily as needed Advair Diskus Active Aerosol 100-50mcg Unknown /0000 /Dose Clotrimazole 08/19 Hx Gaurav 10mg 70uni dissolve ts into mouth YOLANDA Teague - slowly 5 08/31 times a day x 2 weeks Lidocaine 08/16 Hx Cream 4% 15gm apply to B02.9 affected YOLANDA Teague - areas 3 or 10/10 4 times daily Baclofen 08/13 Hx Tablets 10mg 30tab take 10/03 M50.10 Anjum s tab every YOLANDA Teague - 8 hours as 08/13 needed for muscle spasm Gabapentin 08/13 Hx Capsules 300mg 60cap take 1 M51.16 Anjum s capsule by YOLANDA Teague - mouth qhs. 10/23 tolerated can increase to one cap twice daily after three days. Valacyclovir HCL 08/13 Hx Tablets 1gm 21tab 1 tablet B02.9 Anjum s three Zahida, STRIP MACHINE OPERATOR - times 08/20 daily for 7 days Lidocaine Viscous 08/13 Hx Solution 2% 100ml gargle J02.9 Anjum 15ml every Zahida, STRIP MACHINE OPERATOR - 3-4 hours 08/20 as needed Lidocaine / Hx Ointment 5% 50uni apply to B02.9 Anjum ts painful Zahida, STRIP MACHINE OPERATOR - areas 08/16 three times a day as needed Nicotine 10 Hx Patches 7mg/24HR 14uni 1 patch Z72.0 Irma Transdermal /2017 24HR ts topical Senner, System Step 3 - every day DO 10/10 Ipratropium 07/03 Hx Solution 0.5-2.5(3 90ml 1 cap J45.41 Irma Thomson/Albuterol /2017 )mg/3ML inhaled Senner, Sulfate - three DO 10/10 times day Azithromycin Hx Tablets 250mg 2 tabs by Unknown /0000 mouth on - day 1; 1 08/08 tab by /2018 mouth every day on days 2-5 Prednisone 0000 Hx TBPK 10mg (21) 40 mg Unknown /0000 daily for - 10 days 08/09 Arnuity Ellipta 00/00 Hx Aerosol 100mcg/Ac Unknown /0000 t - 10/10 Immunizations Description No Information Available Vital Signs Date Vital Result Comment 12/14/2018 8:25am Height 63 inches 5'3" Weight 215.00 lb BP Systolic Sitting 140 mmHg BP Diastolic Sitting 80 mmHg Pain Level 9 BMI (Body Mass Index) 38.1 kg/m2 11/19/2018 1:09pm Height 63 inches 5'3" Weight 215.00 lb Heart Rate 98 /min BP Systolic 123 mmHg BP Diastolic 88 mmHg Body Temperature 98.8 F O2 % BldC Oximetry 96 % BMI (Body Mass Index) 38.1 kg/m2 11/06/2018 9:43am Height 62 inches 5'2" Weight 217.00 lb BP Systolic Sitting 122 mmHg BP Diastolic Sitting 78 mmHg Pain Level 6 BMI (Body Mass Index) 39.7 kg/m2 10/23/2018 11:02am Weight 217.50 lb Heart Rate 99 /min BP Systolic 115 mmHg BP Diastolic 80 mmHg Body Temperature 97.9 F O2 % BldC Oximetry 98 % 10/08/2018 11:39am Height 62 inches 5'2" Weight [...] Date Facility Test Result H/L Range Note Urinalysis Profile 12/13/2018 [facility] Urine Color Yellow [address] [place] [address] [phone] Urine Appearance Clear Urine Specific [place] 1.019 N 1.010-1.030 Urine pH 5.0 N 5-9 Urine Urobilinogen Negative Negative Urine Ketones Negative Negative Urine Protein Negative Negative Urine Leukocytes Negative Negative Urine Blood Negative Negative Urine Nitrite Negative Negative Urine Bilirubin Negative Negative Urine Glucose Negative Negative Type & Screen 12/13/2018 [facility] Patient Blood Type O Positive [address] [place] [address] [phone] Antibody Screen NEGATIVE Laboratory test 12/13/2018 [facility] HCG < 0.[address] mIU/[place] [address] [phone] CBC Auto Diff 12/03/2018 [facility] White Blood 9.7 10^3/uL N 3.5-[address] Count .8 [place] [address] [phone] Red Blood Count 4.37 10^6/uL N 4.00-5.40 Hemoglobin 10.6 g/dL Low 12.0-16.0 Hematocrit 33 % Low 35-47 Mean Corpuscular Volume 76 fL Low 80-97 Mean Corpuscular Hemoglobin 24 pg Low 27-31 Mean Corpuscular HGB Conc 32 g/dL N 31-36 Red Cell Distribution Width 20 % High 10.5-15 Platelet Count 317 10^3/uL N 150-450 Mean Platelet Volume 9.0 fL N 7.4-10.4 Abs Neutrophils 6.7 10^3/uL N 1.5-7.7 Abs Lymphocytes 1.9 10^3/uL N 1.0-4.8 Abs Monocytes 0.8 10^3/uL N 0-0.8 Abs Eosinophils 0.3 10^3/uL N 0-0.6 Abs Basophils 0.1 10^3/uL N 0-0.2 Abs Nucleated RBC 0 10^3/uL Granulocyte % 68.7 % Lymphocyte % 19.8 % Monocyte % 8.3 % Eosinophil % 2.7 % Basophil % 0.5 % Nucleated Red Blood Cells % 0 Basic Metabolic Panel 12/03/2018 [facility] Sodium 138 mmol/L N 135-145 [address] [place] [address] [phone] Potassium 4.0 mmol/L N 3.5-5.0 Chloride 107 mmol/L N 101-111 Co2 Carbon Dioxide 24 mmol/L N 22-32 Anion Gap 7 mmol/L N 2-11 Glucose 76 mg/dL N 70-100 Blood Urea Nitrogen 10 mg/dL N 6-24 Creatinine 0.63 mg/dL N 0.51-0.95 BUN/Creatinine Ratio 15.9 N 8-20 Calcium 8.7 mg/dL N 8.6-10.3 Egfr Non- 101.3 >60 Egfr 122.6 >60 3 Inr/Protime 12/03/2018 [facility] Inr 0.94 N 0.77-1.[address] [place] [address] [phone] Type & Screen 12/03/2018 [facility] Patient Blood O Positive [address] [place] [address] [phone] Antibody Screen NEGATIVE Laboratory 12/03/2018 [facility] Partial 27.0 seconds N 26.0- 36.3 test finding [address] [place] [address] PTT [phone] Laboratory 10/10/2018 [facility] Cytology SEE RESULT 4 test finding [address] [place], [place] [address] [phone] Laboratory 08/13/2018 [employer] In House Rapid Group negative test finding A Strep Laboratory 08/13/2018 [facility] Culture SEE RESULT 5 test finding [address] [address] [phone] Laboratory 07/04/2018 [facility] Hepatitis C Nonreactive Nonreactive test finding [address] [place] [address] [phone] TSH (Thyroid Stim Horm) 3.68 mcIU/mL N 0.34-5.60 Lipid Profile 07/04/2018 [facility] Triglycerides 143 mg/dL 6 (Trig/Chol/HDL) [address] [place] [address] [phone] Cholesterol 150 mg/dL 7 HDL Cholesterol 63.4 mg/dL 8 LDL Cholesterol 58 mg/dL 9 Laboratory test 07/04/2018 [facility] Hemoglobin A1c 5.6 % N 4.0-5.[address] (Glyco HGB) [place] [address] [phone] 1 AA 12/20 2 <5.0 Negative 5.0 - 25.0 Indeterminate (Repeat testing recommended after 72 hours) >25.0 Positive Perimenopausal women can display HCG levels of up to 20 mIU/mL 3 Because ethnic data is not always readily available, this report includes an eGFR for both -Americans and non- Americans. The National Kidney Disease Education Program (NKDEP) does not endorse the use of the MDRD equation for patients that are not between the ages of 18 and 70, are , have extremes of body size, muscle mass, or nutritional status, or are non- or non-. According to the National Kidney Foundation, irrespective of diagnosis, the stage of the disease is based on the level of kidney function: Stage Description GFR(mL/min/1.73 m(2)) 1 Kidney damage with normal or decreased GFR 90 2 Kidney damage with mild decrease in GFR 60-89 3 Moderate decrease in GFR 30-59 4 Severe decrease in GFR 15-29 5 Kidney failure <15 (or dialysis) 4 SEE RESULT BELOW Name: CHETAN WALLS : [address]: Odessa Robledo STRIP MACHINE OPERATOR Acct: [id number] Unit: [id number] AGE: 48 Location: [facility] Re10/10/18 SEX: F Status: REG REF SPEC: [id number] BRYCE: 10/10/18-[address]: Odessa Robledo STRIP MACHINE OPERATOR REQ: [id number] RECD: 10/10/18141 STATUS: SOUT _ ORDERED: TP IMAGE ANALYS, HPV/Thin Prep COMMENTS: [id number] Negative for Intraepithelial lesion or Malignancy Date Time Test Result Flag (u) Normal Range 10/10/18 4603 @ HPV RNA Negative Negative @ @ The high-risk HPV types detected by the assay include: 16, @ 18, 31, 33, 35, 39, 45, 51, 52, 56, 58, 59, 66, and 68. A. Ectocervical/Endocervical Specimen Adequacy: Satisfactory of evaluation Transformation zone component identified Patient Information: HPV: High risk HPV RNA testing regardless of pap results. Actual Specimen Date: 10/10/18 ?: N Post Menopausal?: N Hysterectomy?: N Previous Abnormal Pap Smears?:N Signed by and Reported on: ARNULFO Zapata(ASCP) [id number] This Pap test was evaluated with the assistance of the [employer] Test Imaging System. Due to cytologic findings at the animal husbandry teacher microscope, comprehensive manual rescreening by a Smelter Operator may be required. The Pap Smear is a screening test designed to aid in the detection of premalignant and malignant conditions of the uterine cervix. It is not a diagnostic procedure and should not be used as the sole means of detecting cervical cancer. Both false- positive and false- negative reports do occur. Depending on your risk status, a Pap smear should be obtained and evaluated every 1-3 years. END OF REPORT DEPARTMENT OF PATHOLOGY, [address] [place] [address] Harpal Sultana M.D. Director [facility] # [id number] 5 SEE RESULT BELOW Name: CHETAN WALLS : [address]: Anjum Teague NP Acct: [id number] Unit: [id number] AGE: 48 Location: [facility] Re08/13/18 SEX: F Status: REG REF SPEC: [id number] BRYCE: 08/13/18-[address]: Anjum Teague NP REQ: [id number] RECD: 08/13/18 STATUS: COMP _ SOURCE: THROAT SPDESC: ORDERED: Throat Culture COMMENTS: [id number] Procedure Result Reported Site Throat Culture Final 11/14/18- 0901 ML Organism 1 NORMAL BRYCE Quantity 2+ Organism 2 YEAST Quantity 1+ Throat cultures are clinically indicated to detect the presence of group A strep, arcanobacterium and yeast. In certain cases, predominating organisms will be reported. * ML - Main Lab . END OF REPORT DEPARTMENT OF PATHOLOGY, [address] [place] [address] Harpal Sultana M.D. Director [facility] # [id number] 6 Desirable: <150 Borderline High: 150-199 High: 200-499 Very High: >500 7 Desirable: <200 Borderline High: 200-239 High: >239 8 Low: <40 Desirable: 40-60 High: >60 9 Desirable: <100 Near Optimal: 100-129 Borderline High: 130-159 High: 160-189 Very High: >189 10 Therapeutic target for the treatment of diabetes mellitus patients is <7% HBA1C, and in selective patients <6.0%. Please refer to [place] [employer] diabetic care guidelines for further information. Procedures Date Code Description Status 11/19/2018 06294 EKG Tracing & Interpretation Completed 11/02/2018 56875 Nerve Conduction 05-06 Studies Completed 11/02/2018 33099 Needle Electromyography Each Extremity W/Related Completed Paraspinal Areas 07/05/2018 [id number] Mammogram Completed Encounters Type Date Location Provider Dx Diagnosis Office Visit 11/19/2018 [facility] Anjum Teague NP Z01.818 Encounter for other 1:00p Medicine - preprocedural [place] examination M50.122 Cervical disc disorder at C5-C6 level with radiculopathy J45.20 Mild intermittent asthma, uncomplicated Office 11/06/2018 [facility] M51.16 Intervertebral disc Visit 9:30a [facility] MD disorders w radiculopathy, lumbar region M47.12 Other spondylosis with myelopathy, cervical region Office Visit 10/23/2018 10:40a [facility] Internal Anjum Zahida, F32.89 Other specified Medicine - STRIP MACHINE OPERATOR depressive [place] episodes M51.16 Intervertebral disc disorders w radiculopathy, lumbar region H81.10 Benign paroxysmal vertigo, unspecified ear M25.512 Pain in left shoulder Office Visit 10/11/2018 9:20a [facility] Dermatology Deena Whitaker, L02.92 MD Darrian unspecified L82.1 Other seborrheic keratosis L81.0 Postinflammatory hyperpigmentation Office [facility]10[facility]2018 [facility] Z01.419 Encntr for vmware engineer [facility] N.P. exam (general) (routine) w/o abn findings R32 Unspecified urinary incontinence F32.89 Other specified depressive episodes Z11.51 Encounter for screening for human papillomavirus (HPV) Office Visit 10/08/2018 11:40a [facility] Internal Anjum Teague, M51.16 Intervertebral disc Medicine - STRIP MACHINE OPERATOR disorders w [place] radiculopathy, lumbar region M50.10 Cervical disc disorder w radiculopathy, unsp cervical region F17.210 Nicotine dependence, cigarettes, uncomplicated F32.89 Other specified depressive episodes Office 09/03/2018 [facility] M51.16 Intervertebral disc Visit 10:30a [facility] MD Katherine disorders w radiculopathy, lumbar region M47.12 Other spondylosis with myelopathy, cervical region M50.122 Cervical disc disorder at C5-C6 level with radiculopathy Office Visit 08/13/2018 9:20a [facility] Internal Anjum Teague, M51.16 Intervertebral disc Medicine - STRIP MACHINE OPERATOR disorders w [place] radiculopathy, lumbar region M50.10 Cervical disc disorder w radiculopathy, unsp cervical region F17.210 Nicotine dependence, cigarettes, uncomplicated J02.9 Acute pharyngitis, unspecified J45.20 Mild intermittent asthma, uncomplicated B02.9 Zoster without complications M54.5 Low back pain M54.2 Cervicalgia Office Visit 07/03/2018 1:30p [facility] Irma Mosqueda, Z72.0 Tobacco use [facility] DO J45.41 Moderate persistent asthma with (acute) exacerbation Z12.39 Encounter for oth screening for malignant neoplasm of breast E66.3 Overweight M79.604 Pain in right leg M51.16 Intervertebral disc disorders w radiculopathy, lumbar region Plan of Treatment Future Appointment(s):12/28/2018 9:00 am - Taylor Murphy MD at [facility]12/20/2018 7:30 am - Laazra Chavez PA-C at [facility]12/20/2018 7:30 am - Taylor Murphy MD at [facility]surgery [facility]
[2018-12-20] MEDS ORDERED: Dexamethasone IV* 4 MG/ML 1 ML (4 MG) ONE (10:01)
[2018-12-20] MEDS ORDERED: Famotidine IV* 10 MG/ML 2 ML (20 mg) ONE (10:02)
[2018-12-20] MEDS ORDERED: ceFAZolin 2 GM in NS PREMIX(*) 2 GM/100 ML BAG IVPB ONE (10:02)
[2018-12-20] MEDS ORDERED: Propofol* 10 MG/ML 20 ML BTL ONE (10:18)
[2018-12-20] MEDS ORDERED: Ondansetron INJ* 2 MG/ML VIAL ONE (10:18)
[2018-12-20] MEDS ORDERED: Propofol* 0 MG/0 ML BTL ONE (10:18)
[2018-12-20] MEDS ORDERED: Midazolam* 1 MG/ML 5 ML VIAL (5 MG) ONE (10:36)
[2018-12-20] MEDS ORDERED: fentaNYL* 50 MCG/ML 5 ML VIAL (250 MCG VIAL) ONE ×3 (10:36→13:36)
[2018-12-20] MEDS ORDERED: Lidocaine 1% MPF wEPI 200,000* 30 ML SDV ONE (10:59)
[2018-12-20] MEDS ORDERED: Bacitracin IV* 50,000 UNITS INJ ONE (11:00)
[2018-12-20] MEDS ORDERED: Thrombin 5,000 UNITS* 1 APPLIC KIT - topical use - TOPICAL ONE (11:00)
[2018-12-20] MEDS ORDERED: Lidocaine 2% PF * 5 ML VIAL ONE (11:45)
[2018-12-20] MEDS ORDERED: Propofol* 1,500 MG/150 ML BTL ONE (12:39)
[2018-12-20] MEDS ORDERED: Rocuronium* 10 MG/ML VIAL ONE ×2 (13:26→13:33)
[2018-12-20] MEDS ORDERED: DiMENhydriNATE IV* 50 MG/ML VIAL IV PUSH PRN (13:44)
[2018-12-20] MEDS ORDERED: fentaNYL* 50 MCG/ML 2 ML VIAL (100 MCG VIAL) IV PRN (13:44)
[2018-12-20] MEDS ORDERED: Naloxone* 0.4 MG/ML 1 ML VIAL IV PRN (13:44)
[2018-12-20] MEDS ORDERED: Ondansetron INJ* 2 MG/ML VIAL IV PRN ×2 (13:44→15:16)
[2018-12-20] MEDS ORDERED: Metoprolol Tartrate IV* 1 MG/ML 5 ML VIAL ONE (14:42)
[2018-12-20] MEDS ORDERED: Sugammadex * 200 MG/2 ML VIAL IV PUSH ONE (14:59)
[2018-12-20] MEDS ORDERED: Acetaminophen TAB* 325 MG PO PRN (15:16)
[2018-12-20] MEDS ORDERED: Magnesium Hydroxide LIQ* 30 ML UDC PO PRN (15:16)
[2018-12-20] MEDS ORDERED: Cyclobenzaprine TAB* 10 MG PO PRN (15:19)
[2018-12-20] MEDS ORDERED: Albuterol HFA INHALER* 8 gm MDI INH PRN (15:19)
[2018-12-20] MEDS ORDERED: Albuterol/Ipratropium NEB.SOL* Albuterol 2.5 MG/Ipratropium 0.5 MG 3 ML INH PRN (15:19)
[2018-12-20] MEDS ORDERED: Benzocaine/Menthol LOZ* 1 LOZENGE PO PRN (15:20)
[2018-12-20] MEDS ORDERED: HYDROmorphone INJ1* 1 MG/ML SYRINGE ONE (16:11)
[2018-12-20] MEDS: HYDROmorphone INJ1* 1 MG/ML SYRINGE IV PRN ×5 (16:13→17:25)
--- NOTE | 2018-12-20 18:27 | OP ---
DATE OF OPERATION: 12/20/18 - ROOM #353 DATE OF : 72 SURGEON: Taylor Murphy MD CABIN CLEANING SUPERVISOR: REMEDIOS Florez. The case was done with assistance of surgical PA because of the complexity of the case. ANESTHESIA: General. PRE-OP DIAGNOSES: 1. Degenerative disk disease. 2. Myelopathy. POST-OP DIAGNOSES: 1. Degenerative disk disease. 2. Myelopathy. OPERATIVE PROCEDURE: The patient underwent anterior cervical diskectomy and fusion at C5-6 and C6-7 with PEEK interbody cage, autologous and DBX bone graft , plate and screws with intraoperative monitoring. ESTIMATED BLOOD LOSS: 15 cc. COMPLICATIONS: None. SUMMARY: The patient is a very pleasant 48-year-old female with complaints of neck pain and mostly left upper extremity pain with clinical signs of myelopathy and MRI findings consistent with degenerative disk disease and significant canal compromise. After failing conservative treatment modalities, she was offered the option of surgical intervention in the form of anterior cervical diskectomy and fusion. After explaining the expectation, limitations, and possible complications to the patient and her family including her father, sister, and sons with complications including, but not limited to, bleeding, infection, risk of injury to adjacent structures, coma, paralysis, , need for additional procedures, anesthesia risks, stroke, blindness, cancer, instability, hardware failure, adjacent level disease, pseudo-arthrosis, recurrent laryngeal nerve injury, spinal fluid leak, Mckenzie syndrome, injury to trachea or esophagus with need for tracheostomy or gastrostomy, thoracic duct injury, the patient was agreeable to proceed with surgery and informed consent was obtained. The patient also understood that her condition may not improve and in fact may get worse after surgery and that she may need to have additional procedures in the future. She also understood that operative plan may be modified according to intraoperative findings and conditions and that the case may be abandoned or done in more than 1 stages. The patient understood that she may require prolonged hospitalization or ICU stay. DESCRIPTION OF PROCEDURE: The patient was brought to the operating room and was placed under general anesthesia by anesthesia team. She was carefully positioned supine on flat top Roshan table and all bony prominences were meticulously padded. Her skin was prepped and draped in the standard fashion. After appropriate surgical pause and patient identification, a small right transverse incision was marked on the skin with the use of intraoperative fluoroscopic imaging. The skin was infiltrated with local anesthetic and a #10 surgical blade was used to incise the skin. The incision was carried down to the platysma and the skin was gently undermined with tenotomy scissors. The platysma was then gently elevated and divided with sharp dissection and was gently undermined. Self-retaining retractors were introduced further into the field, and the plane between the medial border of the sternocleidomastoid and the medial structures was gently developed with use of sharp and blunt dissection. The prevertebral fascia was identified, and after dividing the prevertebral fascia, intraoperative fluoroscopic imaging confirmed appropriate surgical level. [place] pins were then inserted at the vertebral bodies of C5, C6, and C7, and self-retaining retractor was introduced into the field. Intraoperative fluoroscopic imaging confirmed again appropriate surgical levels. Then, under microscopic magnification, a diskectomy was performed at both levels, first starting with C5-6. The annulus fibrosus was divided with a #15 surgical blade and diskectomy was performed with a series of Kerrison punches, pituitary rongeurs, curved and straight curettes, and high-speed drill. The posterior longitudinal ligament was gently divided and significant amount of osteophytes was found in the posterior apophyseal ring as expected from preoperative imaging. After the completion of the diskectomy and bilateral foraminotomies, the dura was found to be pulsating nicely and the nerve roots were free of any pressure phenomenon. After copious irrigation and confirmation of meticulous hemostasis, a #7 PEEK interbody cage from [employer] was inserted after being filled with locally harvested bone graft that was saved during the diskectomy and disk preparation and DBX. The [place] pin of C5 was then gently removed and the procedure was repeated for the C6-7 level. Another 7 mm PEEK interbody cage was used for that level too. A 37-mm ZEVO [employer] plate was then placed and secured in place with 3.5 x 13 mm screws while intraoperative fluoroscopic imaging confirmed excellent placement of all hardware. After copious irrigation and confirmation of meticulous hemostasis and meticulous inspection, the self-retaining retractors were removed and the wound was closed in layers over a Ethan drain which was tunneled through a separate stab wound incision. The platysma muscle was approximated with 2-0 interrupted Vicryl sutures while the subcutaneous tissue was approximated with inverted interrupted 2- 0 Vicryl sutures. The skin was then covered with Dermabond and sterile dressings. At the end of the procedure, all counts were reported to be correct. The patient remained hemodynamically stable throughout the case and intraoperative electrophysiological monitoring remained stable throughout the case. The patient was then extubated and was transferred to recovery in excellent condition, moving all extremities well. Case was done with the assistance of surgical PA because of the complexity of the case. [id number]/[facility] #: [id number] GRZEGORZ
[2018-12-20] MEDS: HYDROcodone/ACETAMIN 5-325 MG* 1 TAB PO PRN (22:18)
[2018-12-21] MEDS: HYDROcodone/ACETAMIN 5-325 MG* 1 TAB PO PRN ×2 (03:29→08:01)
[2018-12-21 08:57] VITALS: BP 130/77
[2018-12-21] MEDS ORDERED: BuPROPion XL* 150 MG TAB.XL PO SCH (09:00)
[2018-12-21] MEDS ORDERED: Fluticasone/Vilanterol MDI(NF) 100/25 MDI INH SCH (09:00)
--- NOTE | 2018-12-21 10:33 | PN ---
Progress Note - Progress Note Date of Service: 12/21/18 SOAP: Subjective: [S/p ACD F C5-6, C6-7 POD #1 Pt feeling well this morning Pain well controlled with [place] Reports improvement in upper extremity numbness, tingling, pain and ROM, especially LUE. Was nauseous yesterday Eating well and swallowing without difficulty Denies headache MJ collar in place] Objective: [ Vital Signs: Temp Pulse Resp BP Pulse Ox 98.0 F 90 16 130/77 95 12/21/18 08:56 12/21/18 08:56 12/21/18 10:08 12/21/18 08:56 12/21/18 08:56 General: Sitting up on bedside, NAD Neuro: Motor and sensory intact Incision: Intact, no swelling or erythema. Wound drain dc today without complication Wound drain output 12/20/18 12/21/18 21:38 01:35 Output, BENJIE #1 20 10 ] Assessment: [Satisfactory post-op] Plan: [1. Discharge home today 2. Discharge instructions discussed 3. Pain medication script sent]
== END 2018-12-21 11:35 | disposition home or self-care (01) | DRG 321 ==
LOC: EDSTATUS 12-20 07:30 → AA 12-20 09:30 → SSU 12-20 17:45
PROVIDERS: ADMIT Neurological Surgery; ATTEND Neurological Surgery
PROC: 4A11X4G Monitoring of Peripheral Nervous Electrical Activity, Intraoperative, External Approach (ICD-10-PCS; 2018-12-20)
PROC: 0RB30ZZ Excision of Cervical Vertebral Disc, Open Approach (ICD-10-PCS; 2018-12-20)
PROC: 0RG20A0 Fusion of 2 or more Cervical Vertebral Joints with Interbody Fusion Device, Anterior Approach, Anterior Column, Open Approach (ICD-10-PCS; principal; 2018-12-20 11:30)
DX: M50.022 Cervical disc disorder at C5-C6 level with myelopathy (principal); M47.12 Other spondylosis with myelopathy, cervical region; E66.9 Obesity, unspecified; J45.909 Unspecified asthma, uncomplicated; G89.29 Other chronic pain; M51.37 Other intervertebral disc degeneration, lumbosacral region; F17.210 Nicotine dependence, cigarettes, uncomplicated; M51.17 Intervertebral disc disorders with radiculopathy, lumbosacral region; Z91.013 Allergy to seafood; Z68.38 Body mass index [BMI] 38.0-38.9, adult
CPT/HCPCS: 72040; 76000; A9270-GY; C1713; C1776; C9359; J0690; J1100; J1170; J2001; J2250; J2405; J2704; J3010; J3490

== ENCOUNTER → 2019-06-05 08:25 | Day surgery (SDC) | payer OTHER ==
[~2019-06-05 08:25] MED LIST: Buffered Lidocaine 1% SYRIN* 1 ML/SYRINGE INTRADERM ONE; Dexamethasone IV* 4 MG/ML 1 ML (4 MG) ONE; DiMENhydriNATE IV* 50 MG/ML VIAL ONE; Famotidine IV* 10 MG/ML 2 ML (20 mg) IV ONE; Famotidine IV* 10 MG/ML 2 ML (20 mg) ONE; Ketorolac INJ* 30 MG/ML 1 ML VIAL ONE; Lactated Ringers 1000 ML Bag* 1,000 ML IV SCH; Lidocaine 1% MPF ** 5 ML VIAL ONE; Lidocaine 2% PF * 5 ML VIAL ONE; Midazolam* 1 MG/ML 5 ML VIAL (5 MG) ONE; Ondansetron INJ* 2 MG/ML VIAL ONE; Propofol* 10 MG/ML 20 ML BTL ONE; ROPIVACAINE 5 MG/ML 30 ML BTL (0.5%) ONE; Rocuronium* 10 MG/ML VIAL ONE; Ropivacaine 0.2% * 2 MG/ML VIAL ONE; Succinylcholine* 20 MG/ML 10 ML VIAL ONE; ceFAZolin 2 GM in NS PREMIX(*) 2 GM/100 ML BAG IVPB ONE; fentaNYL* 50 MCG/ML 2 ML VIAL (100 MCG VIAL) ONE
[2019-06-05 14:26] VITALS: BP 111/68
--- NOTE | 2019-06-06 09:37 | OP ---
OPERATIVE REPORT: DATE OF OPERATION: 06/05/19 DATE OF : 72 ATTENDING SURGEON: Alfie Grullon MD TUNGSTEN TENDER: REMEDIOS Lopez. An assistant associate full professor was needed for the entirety of the case to help with positioning, retraction, and utilized throughout all portions of the case. ANESTHESIOLOGIST: Dr. Carrasco. ANESTHESIA: General interscalene block. PRE-OP DIAGNOSIS: Left shoulder bicipital tendonitis and a high-grade partial thickness tear of the bursal side of the supraspinatus. POST-OP DIAGNOSIS: OPERATIVE PROCEDURE: Left shoulder arthroscopy with: 1. Extensive glenohumeral debridement including biceps tenotomy. 2. Subacromial decompression with acromioplasty. 3. Rotator cuff repair using Regeneten patch. IMPLANTS USED: One Regeneten patch size medium. INDICATIONS: Ilda Lorenz is a 48-year-old female who has had significant shoulder pain for sometime . She has failed conservative management including injections, physical therapy,and antiinflammatori es. She had an MRI that demonstrates potentially a full-thickness tear of the rotator cuff. She has had persistent pain. She also has a neck pathology that she had worked out. We reviewed the risks and benefits of surgery. Risks include but are not limited to bleeding; infection; damage to nerves, vessels, surrounding structures; wound nonhealing; persistent pain; need for further surgery; scarin g; stiffness; incomplete relief of symptoms; and risks of anesthesia. She had elected to proceed. W e also discussed nonoperative treatment as well and she elected to proceed with surgical treatment. DESCRIPTION OF PROCEDURE: The patient was greeted in the preoperative area by the attending surgeon. Correct extremity was marked. Consent was confirmed. The patient underwent interscalene nerve blo ck by the anesthesiologist, was then brought back to the operating table. She was placed in the supi ne position on the operating room table and then underwent general anesthesia with endotracheal intub ation after which she was placed in a right lateral decubitus position with all bony prominences padd ed. She was secured with a pegboard. The left shoulder was then draped unsterile with 10 pounds of traction. The left shoulder was then prepped and draped in the usual sterile fashion beginning with chlorhexidine soap, scrub, and alcohol wipe and a final prep with ChloraPrep. After appropriate surgical pause indicating site, side, procedure, administration of antibiotics; the standard posterolateral portal was made sharp with an 11 blade. Scope was introduced into the joint. The joint was examined, there was abundant synovitis and erythema that was present. There is evide nce of a type 2 superior labral tear. Anteroposterior and superior labrum had unstable fraying. The inferior recess is intact. Glenohumeral joint had grade 1 changes. The inferior surface of the sup raspinatus was intact. There was no evidence of a full-thickness tear. The subscap looked intact as well. The anterior portal was made in an outside-in fashion. The shaver was used to debride the an terior, posterior, and superior labrum. Biceps tenotomy was done. If the patient had had to have a formal repair of the rotator cuff, we were going to do a biceps tenodesis. Once the debridement was completed, attention was directed to the subacromial space. With the scope positioned in the subacromial space, the lateral portal was made in an outside-in fas ion. Shaver was used to debride the abundant bursitis that was present. The undersurface of the acr omion was skeletonized using electrocautery device. A 4-0 oval jaxson was then used to do an acromiopl asty and the CA ligament was peeled back. The rotator cuff was examined. There was evidence for hig h-grade partial thickness tearing with unstable flaps at the supraspinatus, this is bursal side and t his was debrided back. The decision was made to treat it with a Regeneten patch which would allow he r for a faster recovery time, potentially repair of the rotator cuff without her needing a formal rep air with 6 months recovery time and we had discussed this previously in clinic as well. The Regenete n patch was then brought to the field and size medium was chosen. This was then placed over the part ial-thickness and secured with tendon tg medially and then with bony tg laterally. The vikram ulder was taken through gentle range of motion and the implant was found to be nicely secured. The w ounds were then copiously irrigated with sterile saline. Final images were obtained. The incisions were closed with 3-0 nylon in an interrupted fashion. Sterile dressings were applied. Cryo/Cuff and a regular sling were applied. She was awoken from anesthesia, transferred to the PACU in stable con dition. POSTOPERATIVE PLAN: She will be nonweightbearing. She will be in a sling for 1 to 2 days. She will start physical therapy in a few days. She will be discharged on pain medications. DVT prophylaxis considered but deferred due to no previous personal or family history. I will see the patient back i n 10 to 14 days. [id number]/[facility] #: [id number]
== END | disposition home or self-care (01) ==
LOC: OR 08:25
PROVIDERS: ATTEND Orthopaedic Surgery
DX: S46.012D Strain of muscle(s) and tendon(s) of the rotator cuff of left shoulder, subsequent encounter (principal); M75.22 Bicipital tendinitis, left shoulder; F41.8 Other specified anxiety disorders; J45.909 Unspecified asthma, uncomplicated; D64.9 Anemia, unspecified; G89.18 Other acute postprocedural pain; Z72.0 Tobacco use; X58.XXXD Exposure to other specified factors, subsequent encounter; Y92.9 Unspecified place or not applicable
CPT/HCPCS: C1713; J0330; J0690; J1100; J1240; J1885; J2250; J2405; J2704; J2795; J3010

== ENCOUNTER 2020-09-14 16:14 | Observation (INO) ==
[2020-09-14] MEDS ORDERED: Iodixanol (CONTRAST) 320 MG/ML 100 ML SDV IV ONE (16:42)
[2020-09-14 16:59] LABS: ABS Basophils 0.1 10^3/ul (0-0.2); ABS Eosinophils 0.2 10^3/ul (0-0.6); ABS Lymphocytes 5.3 10^3/ul (1.0-4.8); ABS Monocytes 1.2 10^3/ul (0-0.8); ABS Neutrophils 8.7 10^3/ul (1.5-7.7); Eosinophil % 1.4 %; Hematocrit 27 % (35-47); Hemoglobin 8.1 g/dL (12.0-16.0); Mean Corpuscular HGB Conc 30 g/dL (31-36); Mean Corpuscular Hemoglobin 19 pg (27-31); Mean Corpuscular Volume 64 fL (80-97); Mean Platelet Volume 8.1 fL (7.4-10.4); Nucleated Red Blood Cells % 0.1; Platelet Count 454 10^3/uL (150-450); Red Blood Count 4.24 10^6 /uL (3.70-4.87); Red Cell Distribution Width 20 % (10-15); White Blood Count 15.5 10^3/uL (3.5-10.8)
[2020-09-14 17:09] LABS: Activated Partial Thrombo Time 23.2 seconds (26.0-38.0)
[2020-09-14 17:14] LABS: ALT 12 U/L (7-52); AST 11 U/L (13-39); Albumin 3.9 g/dL (3.2-5.2); Albumin/Globulin Ratio 1.3 (1-3); Alkaline Phosphatase 62 U/L (34-104); Anion Gap 3 mmol/L (2-11); BUN/Creatinine Ratio 20.3 (8-20); Blood Urea Nitrogen 15 mg/dL (6-24); CO2 Carbon Dioxide 30 mmol/L (22-32); Calcium 8.9 mg/dL (8.6-10.3); Chloride 101 mmol/L (101-111); EGFR African American 100.9 (>60); EGFR Non-African American 83.4 (>60); Globulin 2.9 g/dL (2-4); Glucose 94 mg/dL (70-100); Potassium 4.1 mmol/L (3.5-5.0); Sodium 134 mmol/L (135-145); Total Protein 6.8 g/dL (6.4-8.9)
[2020-09-14] MEDS ORDERED: Gadoteridol (CONTRAST) 279.3 MG/ML 10 ML IV ONE (19:01)
[2020-09-14] MEDS ORDERED: Ondansetron 4 mg VIAL 2 MG/ML 2 ml VIAL IV PRN (22:19)
[2020-09-14] MEDS ORDERED: Albuterol 2.5mg/3 ml (0.083%) NEB.SOLN INH PRN (22:19)
[2020-09-14 23:09] LABS: Corrected Retic Count 2.1 % (0.5-1.5); Hematocrit for Retic CNT 28 % (35-47); Immature Retic Fraction 0.44; RBC Retic Count 4.24 10^6/uL (3.70-4.87)
[2020-09-14 23:44] LABS: Urine Appearance Clear; Urine Bilirubin Negative (Negative); Urine Blood Negative (Negative); Urine Color Straw; Urine Glucose Negative (Negative); Urine Ketones Negative (Negative); Urine Nitrite Negative (Negative); Urine Protein Negative (Negative); Urine Urobilinogen Negative (Negative)
[2020-09-14 23:55] LABS: % Iron Saturation 6 % (15-55); Iron 28 ug/dL (50-212); LDH 133 U/L (140-271); Total Iron Binding Capacity 475 mcg/dL (250-450); Transferrin 339 mg/dL (203-362); Unsaturated Iron Binding < 460 ug/dL
[2020-09-15 00:15] LABS: Ferritin 1.9 ng/mL (11-307)
[2020-09-15 00:16] LABS: Erythrocyte Sed Rate 2 mm/Hr (0-19)
[2020-09-15 00:19] LABS: Vitamin B12 148 pg/mL (180-914)
[2020-09-15] MEDS: oxyCODONE/Acetamin 5/325 mg TAB PO PRN ×3 (04:10→15:39)
[2020-09-15 05:59] LABS: ABS Basophils 0.2 10^3/ul (0-0.2); ABS Eosinophils 0.3 10^3/ul (0-0.6); ABS Lymphocytes 4.1 10^3/ul (1.0-4.8); Eosinophil % 2.1 %; Hematocrit 24 % (35-47); Hemoglobin 7.5 g/dL (12.0-16.0); Lymphocyte % 32.6 %; Mean Corpuscular HGB Conc 31 g/dL (31-36); Mean Corpuscular Hemoglobin 19 pg (27-31); Mean Corpuscular Volume 63 fL (80-97); Mean Platelet Volume 7.6 fL (7.4-10.4); Platelet Count 438 10^3/uL (150-450); Red Cell Distribution Width 20 % (10-15); White Blood Count 12.5 10^3/uL (3.5-10.8)
[2020-09-15 06:03] LABS: INR 1.07 (0.82-1.09)
[2020-09-15 06:16] LABS: BUN/Creatinine Ratio 20.5 (8-20); Calcium 8.2 mg/dL (8.6-10.3); EGFR Non-African American 78.5 (>60); HDL Cholesterol 49.7 mg/dL; Potassium 3.9 mmol/L (3.5-5.0)
[2020-09-15] MEDS ORDERED: Cyanocobalamin INJ 1,000 MCG/ML VIAL 1 ML VIAL IM ONE (08:00)
[2020-09-15 15:16] VITALS: BP 117/86
[2020-09-15] MEDS ORDERED: Dextran 70/Hypromellose Tears Eye Drops 15 ml BTL (for Artificials Tears) BOTH EYES PRN (15:34)
[2020-09-17 09:16] LABS: Methylmalonic Acid 0.16 nmol/mL (<=0.40)
== END 2020-09-15 17:50 | disposition home or self-care (01) ==
LOC: MEDTELE 16:14 → ED 16:14 → MEDTELE 09-15 00:24
PROVIDERS: ADMIT Pediatrics; ATTEND Internal Medicine

== ENCOUNTER 2022-04-13 11:30 | Observation (INO) ==
[2022-04-13 12:12] LABS: ABS Basophils 0.1 10^3/ul (0-0.2); ABS Eosinophils 0.1 10^3/ul (0-0.6); ABS Monocytes 0.6 10^3/ul (0-0.8); ABS Neutrophils 6.4 10^3/ul (1.5-7.7); Eosinophil % 1.5 %; Hematocrit 40 % (35-47); Hemoglobin 13.5 g/dL (12.0-16.0); Lymphocyte % 21.5 %; Mean Corpuscular HGB Conc 33 g/dL (31-36); Mean Corpuscular Hemoglobin 31 pg (27-31); Mean Corpuscular Volume 92 fL (80-97); Mean Platelet Volume 8.5 fL (7.4-10.4); Platelet Count 277 10^3/uL (150-450); Red Blood Count 4.37 10^6 /uL (3.70-4.87); Red Cell Distribution Width 16 % (10-15); White Blood Count 9.2 10^3/uL (3.5-10.8)
[2022-04-13 12:17] LABS: INR 1.05 (0.86-1.15)
[2022-04-13] MEDS ORDERED: oxyCODONE SR 10 mg TAB ONE (12:21)
[2022-04-13] MEDS ORDERED: Ondansetron 4 mg VIAL 2 MG/ML 2 ml VIAL ONE (12:22)
[2022-04-13] MEDS ORDERED: Scopolamine 1 mg/72hr PATCH ONE (12:22)
[2022-04-13 12:48] LABS: Calcium 9.1 mg/dL (8.6-10.3); Potassium 4.1 mmol/L (3.5-5.0)
[2022-04-13 12:53] LABS: HCG Pregnancy 4.43 mIU/mL
[2022-04-13] MEDS ORDERED: Clindamycin 900 MG/D5W BAG IVPB ONE (13:00)
[2022-04-13] MEDS ORDERED: Midazolam 5 mg/5 ml VIAL 1 mg/ml 5 ml VIAL (5 mg) ONE (13:24)
[2022-04-13] MEDS ORDERED: fentaNYL 100 mcg/2 ml 50 MCG/ML VIAL ONE ×2 (13:24→14:21)
[2022-04-13] MEDS ORDERED: Lidocaine 1% MPF 5 ML VIAL ONE (13:25)
[2022-04-13] MEDS ORDERED: Iohexol 350 (CONTRAST) 50 ML SDV IV ONE ×2 (13:25→14:19)
[2022-04-13] MEDS ORDERED: Heparin 2 UNITS/ML IVPREMIX 1,000 UNIT/500 ML BAG IV ONE (13:25)
[2022-04-13] MEDS ORDERED: Heparin 2 UNITS/ML IVPREMIX 2,000 UNIT/1,000 ML BAG IV ONE (13:38)
[2022-04-13] MEDS ORDERED: nitroGLYCERIN DRIP 25,000 MCG/250 ML BTL ONE (13:41)
[2022-04-13] MEDS ORDERED: HYDROmorphone 0.5 MG/0.5 ML SYRINGE ONE ×2 (14:53→15:13)
[2022-04-13] MEDS ORDERED: Ondansetron 4 mg VIAL 2 MG/ML 2 ml VIAL IV PRN (15:38)
[2022-04-13] MEDS ORDERED: Albuterol HFA INHALER 8 gm MDI INH PRN (15:40)
[2022-04-13] MEDS ORDERED: Prochlorperazine 5 mg/ml 2 ml VIAL (10 mg) ONE (15:45)
[2022-04-13] MEDS ORDERED: HYDROmorphone PCA 1 MG/ML Titrat per Protocol PCA SCH (16:00)
[2022-04-13] MEDS ORDERED: Polyethylene Glycol 3350 17 GM PACKET PO PRN (16:55)
[2022-04-13] MEDS ORDERED: Senna TAB 8.6 mg TAB PO PRN (16:55)
[2022-04-13 17:24] LABS: Urine Appearance Clear; Urine Bilirubin Negative (Negative); Urine Blood Negative (Negative); Urine Color Yellow; Urine Glucose Negative (Negative); Urine Ketones Trace (Negative); Urine Nitrite Negative (Negative); Urine Protein Negative (Negative); Urine Specific Gravity 1.031 (1.002-1.030); Urine Urobilinogen Negative (Negative)
[2022-04-13] MEDS ORDERED: NS 0.9% 1,000 ML IV SCH (19:30)
[2022-04-13] MEDS: Ondansetron 4 mg VIAL 2 MG/ML 2 ml VIAL IV SCH (20:37)
[2022-04-14] MEDS: Magnesium Hydroxide LIQ 30 ML UDC PO PRN ×2 (00:52→00:54)
[2022-04-14] MEDS: Ondansetron 4 mg VIAL 2 MG/ML 2 ml VIAL IV SCH ×2 (00:53→08:05)
[2022-04-14] MEDS ORDERED: HYDROcodone/ACETAMIN 5/325 mg TAB PO PRN (09:07)
[2022-04-14] MEDS ORDERED: Ketorolac 10 mg TAB (NF) PO SCH (10:00)
[2022-04-14 11:26] VITALS: BP 125/75
[2022-04-14] MEDS ORDERED: Cyanocobalamin INJ 1,000 MCG/ML VIAL 1 ML VIAL IM SCH (12:00)
== END 2022-04-14 12:00 | disposition home or self-care (01) ==
LOC: CHICATH 11:30 → SSU 11:30
PROVIDERS: ADMIT Internal Medicine; ATTEND Radiology Diagnostic Radiology
PROC: ANG.UFE (2022-04-13 13:10)